=== PATIENT | male | born 1950 | race Caucasian/White ===

== ENCOUNTER 2025-07-15 12:27 | Emergency (ER) | payer MEDICARE, MEDICAID ==
[~2025-07-15] VITALS: Ht 172.7 cm; Wt 86.4 kg
[~2025-07-15 12:27] MED LIST: DIVA-153 PO; FAMO-136 PO; FOLI0.4T91 PO; MELA5TAB40 PO; MULT-1203 PO; OLAN10TA26 PO; OMEG-135 PO; THIA100T92 PO; VALP250S23 PO
[2025-07-15 12:47] VITALS: TEMP 98
[2025-07-15 13:59] LABS: PLATELET COUNT (AUTO) 288 K/uL (150-450); RED BLOOD CELL COUNT(AUTO) 4.96 MIL/uL (4.50-5.90); RED CELL DISTRIBUTION WIDTH 14.2 % (11.5-14.5); WHITE BLOOD COUNT (AUTO) 4.5 K/uL (4.5-11.0)
[2025-07-15 14:03] VITALS: BP 154/94; PULSE 92; RESP 18; O2SAT 97
[2025-07-15 14:11] LABS: CALCIUM, TOTAL 8.7 mg/dL (8.8-10.5); CREATININE 0.82 mg/dL (0.60-1.30); GLOMERULAR FILTR. RATE CALC > 60 mL/min (>60); GLUCOSE,RANDOM 202 mg/dL (70-110); SODIUM SERUM 137 mmol/L (136-145); UREA NITROGEN, BLOOD 17 mg/dL (7-18)
[2025-07-15 14:26] LABS: PH,URINE DRUG SCREEN 5.5 (5.0-8.0)
[2025-07-15 14:33] LABS: ALCOHOL, URINE DRUG SCREEN NEGATIVE (NEGATIVE); AMPHET/METH SCREEN,URINE NEGATIVE (NEGATIVE); BARBITURATE SCREEN, URINE NEGATIVE (NEGATIVE); CANNABINOID SCREEN,URINE NEGATIVE (NEGATIVE); COCAINE SCREEN,URINE NEGATIVE (NEGATIVE); METHADONE SCREEN, URINE NEGATIVE (NEGATIVE)
[2025-07-15 14:53] LABS: APPEARANCE,URINE CLEAR (CLEAR); GLUCOSE, URINE (UA) 150-200 mg/dL (NEGATIVE); LEUKOCYTE ESTERASE ,URINE NEGATIVE (NEGATIVE); NITRATE,URINE NEGATIVE (NEGATIVE); OCCULT BLOOD,URINE NEGATIVE (NEGATIVE); SPECIFIC GRAVITIY, URINE 1.015 (1.003-1.030)
[2025-07-15] MEDS ORDERED: BREX4TAB PO (14:53)
[2025-07-15] MEDS ORDERED: OLAN5TAB94 PO (14:53)
[2025-07-15] MEDS ORDERED: VALP250C48 PO (14:53)
[2025-07-15] MEDS ORDERED: OLAN10TA26 PO (14:53)
[2025-07-15 15:23] LABS: SQUAMOUS EPITHELIAL CELL,UR Rare /LPF (None Seen)
== END 2025-07-15 15:35 ==
LOC: EMS 12:27
DX: Z02.89 Encounter for other administrative examinations (principal); F20.9 Schizophrenia, unspecified; F32.A Depression, unspecified; Z79.899 Other long term (current) drug therapy; Z88.8 Allergy status to other drugs, medicaments and biological substances; Z91.013 Allergy to seafood
CPT/HCPCS: 80048; 80307; 81001; 85025; 99283